=== PATIENT | male | born 1995 | race Caucasian/White ===

== ENCOUNTER 2024-04-21 00:34 | Emergency (ER) | payer OTHER | END 2024-04-21 03:14 | disposition left against medical advice (07) | LOC: ER 00:50 | DX: R45.851 Suicidal ideations (principal); Z53.21 Procedure and treatment not carried out due to patient leaving prior to being seen by health care provider ==

== ENCOUNTER 2024-04-21 12:02 | Emergency (ER) | payer OTHER ==
[~2024-04-21] VITALS: Ht 188 cm; Wt 73.9 kg
[2024-04-21 13:42] VITALS: BP 130/82; TEMP 98.1; O2SAT 99
== END 2024-04-21 13:44 | disposition home or self-care (01) ==
LOC: ER 12:17
DX: R45.851 Suicidal ideations (principal); F32.A Depression, unspecified; F41.9 Anxiety disorder, unspecified

== ENCOUNTER 2024-06-21 10:08 | Emergency (ER) | payer OTHER ==
[~2024-06-21] VITALS: Ht 188 cm; Wt 90.7 kg
[2024-06-21 12:01] VITALS: TEMP 97
[2024-06-21] MEDS ORDERED: TDAP [DIPH/PERTUSSIS/TET] 0.5 ML VIAL IM ONE (12:02)
[2024-06-21] MEDS ORDERED: LIDOCAINE HCL/PF 1% 30 ML SDV ONE (12:02)
[2024-06-21] MEDS: TDAP [DIPH/PERTUSSIS/TET] 0.5 ML VIAL IM ONE (12:10)
[2024-06-21] MEDS: LIDOCAINE 1% INJ 50 ML MDV IJ ONE (12:15)
[2024-06-21 12:54] VITALS: BP 120/70; O2SAT 99
== END 2024-06-21 12:53 | disposition home or self-care (01) ==
LOC: ER 10:15
DX: S61.011A Laceration without foreign body of right thumb without damage to nail, initial encounter (principal); W25.XXXA Contact with sharp glass, initial encounter; Y93.89 Activity, other specified; Y92.098 Other place in other non-institutional residence as the place of occurrence of the external cause; Y99.8 Other external cause status
CPT/HCPCS: 12002; 73130; 90471; 90715; 99283; A4649; J3490

== ENCOUNTER 2024-06-26 14:21 | Emergency (ER) | payer OTHER ==
[~2024-06-26] VITALS: Ht 188 cm; Wt 104.3 kg
[2024-06-26 16:30] VITALS: BP 137/79; TEMP 97.9; O2SAT 99
== END 2024-06-26 16:44 | disposition home or self-care (01) ==
LOC: ER 14:41
DX: S61.011A Laceration without foreign body of right thumb without damage to nail, initial encounter (principal); R06.02 Shortness of breath; F17.210 Nicotine dependence, cigarettes, uncomplicated; R07.9 Chest pain, unspecified; R20.0 Anesthesia of skin; Z87.09 Personal history of other diseases of the respiratory system; X58.XXXA Exposure to other specified factors, initial encounter; Y93.89 Activity, other specified; Y92.89 Other specified places as the place of occurrence of the external cause; Y99.8 Other external cause status
CPT/HCPCS: 71045-TC; 82962-TC

== ENCOUNTER 2024-07-22 13:13 | Emergency (ER) | payer OTHER ==
[~2024-07-22] VITALS: Ht 188 cm; Wt 95.3 kg
[2024-07-22] MEDS ORDERED: HYDROCODONE/APAP 5/325MG TABLET ONE (15:20)
[2024-07-22] MEDS: HYDROCODONE/APAP 5/325MG TABLET PO ONE (15:23)
[2024-07-22 15:31] LABS: BASOPHILS # (AUTO) 0.1 K/uL (0.0-0.2); BASOPHILS % (AUTO) 0.8 % (0.0-2.0); EOSINOPHILS # (AUTO) 0.1 K/uL (0.0-0.7); EOSINOPHILS % (AUTO) 1.1 % (0.0-6.0); HEMATOCRIT 50 % (39-51); LYMPHOCYTES # (AUTO) 1.8 K/uL (0.8-4.8); LYMPHOCYTES % (AUTO) 17.1 % (20.0-44.0); MEAN CORPUSCULAR HEMOGLOBIN 32 PG (26.0-33.0); MEAN CORPUSCULAR HGB CONC 34 g/dl (31.0-36.0); MEAN CORPUSCULAR VOLUME 95 fL (80-96); MONOCYTES # (AUTO) 0.7 K/uL (0.1-1.30); MONOCYTES % (AUTO) 6.5 % (2.0-12.0); NEUTROPHILS # (AUTO) 7.9 K/uL (1.8-8.9); NEUTROPHILS % (AUTO) 74.5 % (43.0-81.0); PLATELET COUNT (AUTO) 271 K/uL (150-450); RED CELL DISTRIBUTION WIDTH 12.8 % (11.5-15.0); WHITE BLOOD COUNT (AUTO) 10.6 K/uL (4.3-11.0)
[2024-07-22 15:45] LABS: CALCIUM, SERUM 9.1 mg/dL (8.5-10.1); CARBON DIOXIDE 24 mmol/L (21-32); CHLORIDE 102 mmol/L (98-107); CREATININE 0.9 mg/dL (0.6-1.3); GLUCOSE 92 mg/dL (74-106); POTASSIUM 3.9 mmol/L (3.5-5.1); SODIUM SERUM 135 mmol/L (136-145); UREA NITROGEN, BLOOD 17 mg/dL (7-18)
[2024-07-22 15:51] LABS: ALANINE AMINOTRANSFERASE 27 U/L (12-78); ALBUMIN 4.1 g/dL (3.4-5.0); ALKALINE PHOSPHATASE 67 U/L (46-116); ASPARTATE AMINOTRANSFERASE 22 U/L (15-37); BILIRUBIN,DIRECT 0.1 mg/dL (0.0-0.2); BILIRUBIN,TOTAL 0.5 mg/dL (0.2-1.0); TOTAL PROTEIN, SERUM 8.2 g/dL (6.4-8.2)
[2024-07-22 16:30] VITALS: BP 128/86; TEMP 98.2; O2SAT 97
== END 2024-07-22 16:31 | disposition home or self-care (01) ==
LOC: ER 13:15
DX: S01.81XA Laceration without foreign body of other part of head, initial encounter (principal); F17.200 Nicotine dependence, unspecified, uncomplicated; G44.309 Post-traumatic headache, unspecified, not intractable; Z88.7 Allergy status to serum and vaccine; W10.9XXA Fall (on) (from) unspecified stairs and steps, initial encounter; Y93.89 Activity, other specified; Y92.89 Other specified places as the place of occurrence of the external cause; Y99.8 Other external cause status
CPT/HCPCS: 99285; 72125; 93005; 70450; 85025; 80048; 80076; 36415; 84484; L0172